=== PATIENT | male | born 1950 | race Caucasian/White ===

== ENCOUNTER 2023-06-15 08:31 | Emergency (ER) | payer MEDICARE, SELFPAY ==
[2023-06-15] VITALS (9 sets, daily range): BP systolic 168–195; BP diastolic 92–116; PULSE 90; RESP 18; TEMP 36.8; O2SAT 99; BMI 24.2
--- NOTE | 2023-06-15 09:04 | CT_ITS ---
The [address] [address] Patient Name: FORTINO PILLAI MRN: [id number] date: 1950 Sex: M Assigned Patient Location: ER Current Patient Location: Accession/Order Number: [id number] Exam Date: 06/15/2023 10:28 Report Date: 06/15/2023 11:06 At the request of: VANE BABIN Procedure: CT angio neck EXAM: CT angio head, CT angio neck HISTORY: Left-sided weakness COMPARISON: CT head performed earlier the same day and reported separately. TECHNIQUE: Postcontrast CTA imaging of the head and neck was performed with coronal and sagittal reformats. Maximum intensity projection reformats were performed on a separate workstation. NASCET criteria was utilized. This CT exam was performed using one or more of the following dose reduction techniques: Automated exposure control, adjustment of the MA and/or kV according to patient size, or use of iterative reconstruction technique. Please note all images for the CTA head and CT neck or contained under the CTA head patient jacket. FINDINGS: Aortic arch: Imaged portion shows no evidence of aneurysm. No significant stenosis of the major origins of the major arch vessels. Right carotid system: No evidence of significant (50% or greater) stenosis or occlusion. Left carotid system: No evidence of significant (50% or greater) stenosis or occlusion. Vertebral arteries: Codominant. No evidence of significant (50% or greater) stenosis or occlusion. Anterior circulation: No evidence of significant stenosis, or occlusion. There is atherosclerotic calcification involving the bilateral petrous, cavernous and supraclinoid internal carotid arteries with mild stenosis. 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 No visible residual aneurysm is seen. Vertebrobasilar system: No evidence of aneurysm, significant stenosis, or occlusion. Venous sinuses: Grossly patent. Additional findings: Mild paraseptal emphysematous changes are present. Prior left pterional craniotomy change relating to aneurysm clip placement. Moderate degenerative change of the cervical spine with slight reversal normal cervical lordosis. CT/CT angio neck IMPRESSION: 1. No large vessel occlusion, hemodynamically significant stenosis or aneurysm is present involving the neck or intracranial arteries. 2. 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 Electronically authenticated by: CAMILLE DANIELS Date: 06/15/2023 11:06
--- NOTE | 2023-06-15 09:04 | ECG_ITS ---
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
--- NOTE | 2023-06-15 09:04 | CT_ITS ---
The [address] [address] Patient Name: FORTINO PILLAI MRN: [id number] date: 1950 Sex: M Assigned Patient Location: ER Current Patient Location: ER Accession/Order Number: [id number] Exam Date: 06/15/2023 09:15 Report Date: 06/15/2023 09:39 At the request of: VANE BABIN Procedure: CT stroke head/brain wo con CT stroke head/brain wo con, 06/15/2023 9:15 AM EDT INDICATION: Left side numb COMPARISON: No prior CT scan of the head available for comparison at the time of this dictation. TECHNIQUE: Axial CT images of the brain from skull base to vertex, including portions of the face and sinuses, were obtained without contrast. Multiplanar reformatted images were generated and reviewed as needed. FINDINGS: Streak artifact from aneurysm clip in region of left supraclinoid internal carotid artery and anterior communicating artery, limits evaluation. No intracranial mass, hydrocephalus, midline shift or acute hemorrhage. No extra-axial collection. Periventricular and deep white matter microvascular ischemic change. Bowman-white matter differentiation is preserved. 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 The paranasal sinuses and mastoid air cells are essentially clear. Orbits are within normal limits. No acute skull fracture. CT/CT stroke head/brain wo con IMPRESSION: No acute intracranial abnormality. Electronically authenticated by: MICHAEL JERNIGAN Date: 06/15/2023 09:39
--- NOTE | 2023-06-15 09:04 | CT_ITS ---
The [address] [address] Patient Name: FORTINO PILLAI MRN: [id number] date: 1950 Sex: M Assigned Patient Location: ER Current Patient Location: Accession/Order Number: [id number] Exam Date: 06/15/2023 10:28 Report Date: 06/15/2023 11:06 At the request of: VANE BABIN Procedure: CT angio head EXAM: CT angio head, CT angio neck HISTORY: Left-sided weakness COMPARISON: CT head performed earlier the same day and reported separately. TECHNIQUE: Postcontrast CTA imaging of the head and neck was performed with coronal and sagittal reformats. Maximum intensity projection reformats were performed on a separate workstation. NASCET criteria was utilized. This CT exam was performed using one or more of the following dose reduction techniques: Automated exposure control, adjustment of the MA and/or kV according to patient size, or use of iterative reconstruction technique. Please note all images for the CTA head and CT neck or contained under the CTA head patient jacket. FINDINGS: Aortic arch: Imaged portion shows no evidence of aneurysm. No significant stenosis of the major origins of the major arch vessels. Right carotid system: No evidence of significant (50% or greater) stenosis or occlusion. Left carotid system: No evidence of significant (50% or greater) stenosis or occlusion. Vertebral arteries: Codominant. No evidence of significant (50% or greater) stenosis or occlusion. Anterior circulation: No evidence of significant stenosis, or occlusion. There is atherosclerotic calcification involving the bilateral petrous, cavernous and supraclinoid internal carotid arteries with mild stenosis. 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 No visible residual aneurysm is seen. Vertebrobasilar system: No evidence of aneurysm, significant stenosis, or occlusion. Venous sinuses: Grossly patent. Additional findings: Mild paraseptal emphysematous changes are present. Prior left pterional craniotomy change relating to aneurysm clip placement. Moderate degenerative change of the cervical spine with slight reversal normal cervical lordosis. CT/CT angio head IMPRESSION: 1. No large vessel occlusion, hemodynamically significant stenosis or aneurysm is present involving the neck or intracranial arteries. 2. Prior left craniotomy change with aneurysm clip along the anterior [place] presumably relating to prior anterior communicating artery aneurysm without visible residual aneurysm seen. Electronically authenticated by: CAMILLE DANIELS Date: 06/15/2023 11:06
--- NOTE | 2023-06-15 09:09 | XR_ITS ---
The [address] [address] Patient Name: FORTINO PILLAI MRN: [id number] date: 1950 Sex: M Assigned Patient Location: ER Current Patient Location: ER Accession/Order Number: [id number] Exam Date: 06/15/2023 09:20 Report Date: 06/15/2023 09:44 At the request of: VANE BABIN Procedure: XR chest 2V EXAM: XR chest 2V HISTORY: Shortness of breath and left-sided weakness. COMPARISON: CT chest dated 01/16/2023. TECHNIQUE: Frontal and lateral views of the chest performed. FINDINGS: The trachea is normal. The heart size is normal. There is mild atheromatous calcification along the thoracic aorta. There is a mildly tortuous course of the descending thoracic aorta. There is no consolidation or infiltrate. There is no pleural effusion or pulmonary vascular congestion. The known 1.2 cm left upper lobe nodule is not identified on the plain film radiograph. There is no pneumothorax. There is no acute osseous abnormality. The bony structures are osteopenic. There is an old fracture deformity of the left clavicle. XR/XR chest 2V IMPRESSION: There is no acute cardiopulmonary process. The known 1.2 cm left upper lobe nodule is not identified on the plain film radiograph. Electronically authenticated by: MYCHAL PLUMMER Date: 06/15/2023 09:44
--- NOTE | 2023-06-15 09:35 | PC.NURSE ---
pt up to the bathroom
[2023-06-15 10:08] LABS: Basophils Percent Auto 0.6 % (0.2-2.0); Eosinophils Absolute Auto 0.1 10^3/uL (0.0-0.7); Eosinophils Percent Auto 1.2 % (0.9-7.0); Hematocrit 37.8 % (42.0-54.0); Hemoglobin 12.6 g/dL (14.0-18.0); Immature Granulocytes Abs Auto 0.02 10^3/uL (0.00-0.03); Immature Granulocytes Pct Auto 0.4 % (0.0-0.5); Lymphocytes Absolute Auto 1.2 10^3/uL (1.2-3.8); Lymphocytes Percent Auto 25.2 % (20.5-60.0); Mean Corpuscular HGB Conc 33.3 g/dL (29.9-35.2); Mean Corpuscular Volume 93.1 fL (80.0-94.0); Mean Platelet Volume 9.4 fL (9.5-13.5); Monocytes Absolute Auto 0.3 10^3/uL (0.3-0.8); Monocytes Percent Auto 6.9 % (1.7-12.0); Neutrophils Absolute Auto 3.2 10^3/uL (1.4-6.5); Neutrophils Percent Auto 65.7 % (43.0-75.0); Platelet Count 162 10^3/uL (150-450); Red Blood Count 4.06 10^6/uL (4.70-6.10); Red Cell Distribution Width 12.1 % (11.0-15.0); White Blood Count 4.8 10^3/uL (4.0-11.0)
[2023-06-15 10:20] LABS: INR 0.97; Prothrombin Time 10.3 sec (9.0-11.6)
[2023-06-15 10:23] LABS: Alanine Aminotransferase 30 U/L (16-63); Albumin Globulin Ratio 0.9; Alkaline Phosphatase 90 U/L (46-116); Anion Gap 13.4; Aspartate Amino Transferase 35 U/L (15-37); BUN Creatinine Ratio 10.4; Bilirubin Total 0.8 mg/dL (0.2-1.0); Calcium 9.6 mg/dL (8.5-10.1); Carbon Dioxide 27.4 mmol/L (21.0-32.0); Chloride 101 mmol/L (98-107); Estimated GFR (African America >60 (>=60); Estimated GFR (Non-African Ame >60 (>=60); Globulin 4.5 g/dL; Glucose 126 mg/dL (74-106); Potassium 3.8 mmol/L (3.5-5.1); Sodium 138 mmol/L (136-145); Total Protein 8.5 g/dL (6.4-8.2)
[2023-06-15 10:25] LABS: Troponin I High Sensitivity 13.1 pg/mL (4.0-76.1)
--- NOTE | 2023-06-15 10:59 | ED.GENADUL1 ---
HPI - General Adult General Chief complaint: Chest Pain Stated complaint: HIGH BLOOD PRESSURE Time Seen by Provider: 06/15/23 09:04 Source: patient Mode of arrival: walk-in History of Present Illness HPI narrative: Patient is a 73-year-old male who is presenting to the Emergency Room with multiple concerns and complaints, but his chief concern is elevated blood pressure. Patient has been checking his blood pressure at home the last several days. Patient's blood pressure is becoming elevated, Dr. Lehman increase his lisinopril dose from lisinopril 10 mg to lisinopril 20 mg daily. Patient also is taking Norvasc 5 mg daily. Patient has a significant medical history. In 2004, patient had a moderate to severe stroke on the left side of his body. The process of having a stroke workup, they found the aneurysm. Patient had clipping of a brain aneurysm 2004. 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 Patient takes Vicodin several times a day as needed for pain. Patient states that his Left leg has felt like weight her 1-2 years. Patient fluid he's having intermittent tightness in his left arm 3 weeks. Patient has no acute strokelike signs or symptoms today. The patient initially arrived, it was thought that he was having new onset of weight and his left leg and tightness In his left arm. when The patient initially arrived House with a very critical patient with several hours before perform a good history and physical on this patient. I had initiated a stroke protocol secondary to the signs and symptoms I was hearing from nursing staff. I did speak to the patient and very briefly when he arrived to do a quick medical screening evaluation. It was not clear that his head weight of his left leg is been going on for years and a tightness sensation in his left arm has been for 2 weeks, he has no strokelike signs or symptoms after I performed thorough history and physical exam. Patient is most concerned about his blood pressure as is his . Dr. Lehman PCP which they did speak to yesterday. . All systems are negative except as noted/marked. All systems reviewed and otherwise negative. . Nurses note and vital signs reviewed and patient is not hypoxic. General: The patient appears well and in no apparent distress. Patient is resting comfortably on cart. Patient is not toxic, lethargic, or listless Skin: Warm, dry, no pallor noted. There is no rash noted. 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 No acute signs or symptoms of any new injury. Head: Normocephalic, atraumatic, No carotid bruits bilateral. Eye: Normal conjunctiva, no drainage, EOMI. PERRL Ears, Nose, Mouth, and Throat: oral mucosa is moist. Nares patent. Mouth without vesicles. Cardiovascular: Regular Rate and Rhythm, no murmur, gallop, rub Respiratory: Patient is in no distress, no accessory muscle use, lungs are clear to auscultation, no wheezing, rales or rhonchi Back: non-tender, no CVA tenderness bilaterally to percussion. No CT LS midline pain GI: soft, no tenderness to palpation, no masses appreciated. No rebound, guarding, or rigidity noted. No flank pain bilateral, No distention Musculoskeletal: Patient has full range of motion of all of the extremities, no motor, sensory, or focal neurological deficits Neurological: A&O x3, normal speech. NIH 0, Patient has no motor or sensory deficits to his upper or lower extremities. Psychiatric: Cooperative Related Data Home Medications Medication Instructions Recorded Confirmed amlodipine 5 mg tablet 5 mg PO QDAY 06/15/23 06/15/23 atorvastatin 80 mg tablet 80 mg PO QDAY 06/15/23 06/15/23 hydrocodone 10 mg-acetaminophen 1 tab PO Q8H PRN pain 06/15/23 06/15/23 325 mg tablet lisinopril 10 mg tablet 10 mg PO QDAY 06/15/23 06/15/23 pantoprazole 40 mg tablet,delayed 40 mg PO QDAY 06/15/23 06/15/23 release Allergies Allergy/AdvReac Type Severity Reaction Status Date / Time streptomycin AdvReac Intermediate Verified 06/15/23 08:58 Exam Constitutional Vital Signs, click to edit/add: Last Vital Signs Temp 98.2 F 06/15/23 08:44 Pulse 90 06/15/23 08:44 Resp 18 06/15/23 08:44 BP 183/103 H 06/15/23 11:15 Pulse Ox 99 06/15/23 08:44 O2 Del Method Room Air 06/15/23 08:44 Course Vital Signs Vital signs: Vital Signs Temperature 98.2 F 06/15/23 08:44 Pulse Rate 90 06/15/23 08:44 Respiratory Rate 18 06/15/23 08:44 Blood Pressure 180/92 H 06/15/23 08:44 Pulse Oximetry 99 06/15/23 08:44 Oxygen Delivery Method Room Air 06/15/23 08:44 Temperature 98.2 F 06/15/23 08:44 Pulse Rate 90 06/15/23 08:44 Respiratory Rate 18 06/15/23 08:44 Blood Pressure 183/103 H 06/15/23 11:15 Pulse Oximetry 99 06/15/23 08:44 Oxygen Delivery Method Room Air 06/15/23 08:44 Medical Decision Making MDM Narrative Medical decision making narrative: Initial CT of the brain showed no acute findings of stroke, bleed, or mass. No signs of any type of bleeding from aneurysm. Patient also had a CT of his head neck. This is ordered initially because it is thought the patient was in a 24-hour window of having strokelike signs or symptoms. This was a message that was interpreted from the patient and his and nursing staff. After speaking to the patient, patient's symptoms have been ongoing for quite some time, not new in the last 24 hours. Regardless, patient's workup shows no acute findings. 15 minutes was spent at bedside discussing hypertension, continuing the medication change that just occurred yesterday with Dr. Hernandez and following up with Dr. Hernandez next week to recheck blood pressure. Asymptomatic blood pressure elevation was discussed with patient and his as well. He understands what to return to the Emergency Room if having significant symptoms, or any other acute concern. It was recommended the patient only check his blood pressure twice a day, if any other acute concerns call PCP or return to Emergency Room. Patient will create a blood pressure log. No other questions or concerns from patient or his at discharge. Patient had asymptomatic hypertension in the Emergency Room today. Patient will continue taking pain medication at home. Patient took his pain pill in the Emergency Room, I gave him water to drink that. He did not have his pain medication initially this morning. Lab Data Lab results reviewed: Yes I reviewed the patient's lab results Labs: Lab Results 06/15/23 Range/Units 09:45 WBC 4.8 (4.0-11.0) 10^3/uL RBC 4.06 L (4.70-6.10) 10^6/uL Hgb 12.6 L (14.0-18.0) g/dL Hct 37.8 L (42.0-54.0) % MCV 93.1 (80.0-94.0) fL MCH 31.0 (25.9-34.0) pg MCHC 33.3 (29.9-35.2) g/dL RDW 12.1 (11.0-15.0) % Plt Count 162 (150-450) 10^3/uL MPV 9.4 L (9.5-13.5) fL Neut % (Auto) 65.7 (43.0-75.0) % Lymph % (Auto) 25.2 (20.5-60.0) % [place] % (Auto) 6.9 (1.7-12.0) % Eos % (Auto) 1.2 (0.9-7.0) % Baso % (Auto) 0.6 (0.2-2.0) % Neut # (Auto) 3.2 (1.4-6.5) 10^3/uL Lymph # (Auto) 1.2 (1.2-3.8) 10^3/uL [place] # (Auto) 0.3 (0.3-0.8) 10^3/uL Eos # (Auto) 0.1 (0.0-0.7) 10^3/uL Baso # (Auto) 0.0 (0.0-0.1) 10^3/uL Abs Immat Gran (auto) 0.02 (0.00-0.03) 10^3/uL Imm/Tot Granulo (auto) 0.4 (0.0-0.5) % PT 10.3 (9.0-11.6) sec INR 0.97 APTT 25.0 (22.3-36.2) sec Sodium 138 (136-145) mmol/L Potassium 3.8 (3.5-5.1) mmol/L Chloride 101 (98-107) mmol/L Carbon Dioxide 27.4 (21.0-32.0) mmol/L Anion Gap 13.4 BUN 7.0 (7.0-18.0) mg/dL Creatinine 0.67 L (0.70-1.30) mg/dL Est GFR ( Amer) >60 (>=60) Est GFR (Non-Af Amer) >60 (>=60) BUN/Creatinine Ratio 10.4 Glucose 126 H (74-106) mg/dL Calcium 9.6 (8.5-10.1) mg/dL Total Bilirubin 0.8 (0.2-1.0) mg/dL AST 35 (15-37) U/L ALT 30 (16-63) U/L Alkaline Phosphatase 90 (46-116) U/L Troponin I High Sens 13.1 (4.0-76.1) pg/mL Total Protein 8.5 H (6.4-8.2) g/dL Albumin 4.0 (3.4-5.0) g/dL Globulin 4.5 g/dL Albumin/Globulin Ratio 0.9 ECG Data Attestation: I personally reviewed and interpreted this ECG as follows: Interpretation: Normal sinus rhythm 85 beats a minute. Normal axis deviation. No acute ST elevation, no acute ectopy. QTC of 419. LVH. Discharge Plan Discharge Chief Complaint: Chest Pain Clinical Impression: Hypertension Patient Disposition: Home, Self-Care Condition: Fair Prescriptions / Home Meds: No Action lisinopril 10 mg tablet 10 mg PO QDAY amlodipine 5 mg tablet 5 mg PO QDAY atorvastatin 80 mg tablet 80 mg PO QDAY pantoprazole 40 mg tablet,delayed release (DR/EC) 40 mg PO QDAY hydrocodone-acetaminophen 10-325 mg tablet 1 tab PO Q8H PRN (Reason: pain) Instructions: Hypertension (ED) Additional Instructions: Continue taking lisinopril [address] Hernandez change her dose yesterday. Continue taking Norvasc 5 mg daily. Call today or Sunday and make an appointment for next or Sunday for reevaluation and blood pressure in Dr. Lehman's office. Any other additional blood pressure medication changes could come from his office next week if needed. If you're significantly symptomatic such as significant headache, chest pain, shortness of breath, or any other significant findings, with elevated blood pressure, return back to the Emergency Room. Stand Alone Forms: Portal Instructions Referrals: MEGAN HERNANDEZ [Primary Care Provider] - 1 week Discharge Date/Time: 06/15/23 13:25
== END 2023-06-15 13:25 | disposition home or self-care (01) ==
PROVIDERS: Emergency Provider Emergency Medicine; PCP Internal Medicine
DX: I10 Essential (primary) hypertension (principal); M47.812 Spondylosis without myelopathy or radiculopathy, cervical region; M47.816 Spondylosis without myelopathy or radiculopathy, lumbar region; R06.02 Shortness of breath; Z79.899 Other long term (current) drug therapy; Z86.73 Personal history of transient ischemic attack (TIA), and cerebral infarction without residual deficits
CPT/HCPCS: 36415; 70450; 70496; 70498; 71046; 80053; 84484; 85025; 85610; 85730; 93005; 99285; Q9967

== ENCOUNTER 2023-11-29 09:33 | Outpatient (OUT) | payer MEDICARE, SELFPAY ==
[2023-11-29 10:38] LABS: Basophils Absolute Auto 0.1 10^3/uL (0.0-0.1); Basophils Percent Auto 1.1 % (0.2-2.0); Eosinophils Absolute Auto 0.2 10^3/uL (0.0-0.7); Eosinophils Percent Auto 2.8 % (0.9-7.0); Hematocrit 37.3 % (42.0-54.0); Hemoglobin 12.6 g/dL (14.0-18.0); Immature Granulocytes Abs Auto 0.03 10^3/uL (0.00-0.03); Immature Granulocytes Pct Auto 0.6 % (0.0-0.5); Lymphocytes Absolute Auto 2.1 10^3/uL (1.2-3.8); Mean Corpuscular HGB Conc 33.8 g/dL (29.9-35.2); Mean Corpuscular Volume 91.9 fL (80.0-94.0); Mean Platelet Volume 8.9 fL (9.5-13.5); Monocytes Absolute Auto 0.4 10^3/uL (0.3-0.8); Monocytes Percent Auto 7.6 % (1.7-12.0); Neutrophils Absolute Auto 2.6 10^3/uL (1.4-6.5); Neutrophils Percent Auto 48.9 % (43.0-75.0); Platelet Count 209 10^3/uL (150-450); Red Blood Count 4.06 10^6/uL (4.70-6.10); Red Cell Distribution Width 11.9 % (11.0-15.0); White Blood Count 5.3 10^3/uL (4.0-11.0)
[2023-11-29 11:00] LABS: Alanine Aminotransferase 33 U/L (16-63); Albumin Globulin Ratio 0.8; Albumin Level 3.9 g/dL (3.4-5.0); Alkaline Phosphatase 106 U/L (46-116); Anion Gap 12.1; Aspartate Amino Transferase 28 U/L (15-37); Bilirubin Total 0.8 mg/dL (0.2-1.0); Calcium 10.5 mg/dL (8.5-10.1); Carbon Dioxide 29.3 mmol/L (21.0-32.0); Chloride 98 mmol/L (98-107); Chol HDL Ratio 2.3; Cholesterol 207 mg/dL (<=200); Estimated GFR (African America >60 (>=60); Estimated GFR (Non-African Ame >60 (>=60); Globulin 4.9 g/dL; Glucose 114 mg/dL (74-106); HDL Cholesterol 91 mg/dL (40-60); Potassium 4.4 mmol/L (3.5-5.1); Sodium 135 mmol/L (136-145); Total Protein 8.8 g/dL (6.4-8.2); Triglycerides 143 mg/dL (<=150); VLDL CHOLESTEROL 28.6 mg/dL
[2023-11-29 11:52] LABS: Prostate Specific Antigen Dx 0.72 ng/mL (<=4.00)
== END 2023-11-29 09:34 | disposition home or self-care (01) ==
LOC: LAB 09:35
PROVIDERS: PCP Internal Medicine; Visit Provider Internal Medicine
DX: I73.9 Peripheral vascular disease, unspecified (principal); I10 Essential (primary) hypertension; E78.00 Pure hypercholesterolemia, unspecified; Z12.5 Encounter for screening for malignant neoplasm of prostate
CPT/HCPCS: 36415; 80053; 80061; 84153; 85025